=== PATIENT | male | born 1980 | race Two or more races ===

== ENCOUNTER 2025-01-07 21:06 | Inpatient (IN) | payer MEDICARE, MEDICAID ==
[~2025-01-07] VITALS: Ht 190.5 cm; Wt 95.3 kg
[2025-01-07 20:40] VITALS: BP 142/91; PULSE 84; RESP 18; TEMP 97.1; O2SAT 98
[~2025-01-07 21:06] MED LIST: ATEN-187 PO; CHOL100034 PO; DIVA-112 PO; FOLI20CA PO; LAMO-24 PO; LEVE750T4 PO; PANT-31 PO; PHEN100C74 PO; ROSU20TA98 PO; SERT-158 PO
[2025-01-07] MEDS ORDERED: ZOLPIDEM TARTRATE 10 MG TABLET PO PRN (22:00)
[2025-01-07] MEDS ORDERED: haloperidoL 5 MG TABLET PO PRN (22:00)
[2025-01-07 22:05] LABS: GLUCOMETER DEV NAME(LOC) POC.BV; POC SARS-COV2 AG, FIA NEGATIVE (NEGATIVE)
[2025-01-07 23:12] VITALS: BP 130/78; PULSE 83; RESP 18; TEMP 98.2; O2SAT 98
[2025-01-08] MEDS ORDERED: LOPERAMIDE HCL 2 MG CAPSULE PO PRN
[2025-01-08] MEDS ORDERED: BACITRACIN 28 GM OINTMENT TP PRN
[2025-01-08] MEDS ORDERED: OMEPRAZOLE 20 MG CAPSULE PO PRN
[2025-01-08] MEDS ORDERED: ALBUTEROL SULFATE HFA 90 MCG/PUFF 8 GM INHALER IH PRN
[2025-01-08] MEDS ORDERED: CloNIDine HCL 0.1 MG TABLET PO PRN
[2025-01-08] MEDS ORDERED: ONDANSETRON 4 MG TABLET PO PRN
[2025-01-08] MEDS ORDERED: IBUPROFEN 600 MG TABLET PO PRN
[2025-01-08] MEDS ORDERED: MAG HYDROX/ALUMINUM HYD/SIMETH ES 30 ML SUSPENSION UDCUP PO PRN
[2025-01-08] MEDS ORDERED: ACETAMINOPHEN 325 MG TABLET PO PRN
[2025-01-08] MEDS ORDERED: BENZOCAINE/MENTHOL [CEPACOL] LOZENGE PO PRN
[2025-01-08] MEDS ORDERED: PETROLATUM,WHITE 28 GM JELLY TP PRN
[2025-01-08] MEDS: PNEUMOCOCCAL VACCINE POLYVALENT 0.5 ML SYRINGE [PPSV23] IM. ONE (02:30)
[2025-01-08] MEDS: LORazepam 2 MG TABLET PO PRN (04:24)
[2025-01-08 09:39] VITALS: BP 111/72; PULSE 98; RESP 18; TEMP 97.9; O2SAT 98
[2025-01-08 09:43] LABS: BASOPHILS % (AUTO) 0.3 % (0.0-2.0); EOSINOPHILS % (AUTO) 0.7 % (1.0-6.0); HEMATOCRIT 42.3 % (41-53); LYMPHOCYTES # (AUTO) 1.3 K/uL (1.0-4.8); LYMPHOCYTES % (AUTO) 16.9 % (22.0-44.0); MEAN CORPUSCULAR HEMOGLOBIN 30.6 pg (26.0-34.0); MEAN CORPUSCULAR HGB CONC 33.1 G/dL (31.0-37.0); MEAN CORPUSCULAR VOLUME 92 fL (80-100); MONOCYTES # (AUTO) 0.9 K/uL (0.1-1.0); MONOCYTES % (AUTO) 11.1 % (2.0-9.0); NEUTROPHILS # (AUTO) 5.5 K/uL (1.8-7.7); PLATELET COUNT (AUTO) 258 K/uL (150-450); RED BLOOD CELL COUNT(AUTO) 4.58 MIL/uL (4.50-5.90); RED CELL DISTRIBUTION WIDTH 13.8 % (11.5-14.5); WHITE BLOOD COUNT (AUTO) 7.8 K/uL (4.5-11.0)
[2025-01-08 09:51] LABS: HEMOGLOBIN A1C 5.1 % (3.8-5.6)
[2025-01-08 09:59] LABS: ALCOHOL, BLOOD (SERUM) < 3 mg/dL (0-10)
[2025-01-08 10:05] LABS: ALANINE AMINOTRANSFERASE 29 U/L (12-78); ALBUMIN 3.6 g/dL (3.4-5.0); ALKALINE PHOSPHATASE 131 U/L (46-116); ANION GAP 7 mmol/L (8-16); ASPARTATE AMINOTRANSFERASE 32 U/L (15-37); BILIRUBIN,TOTAL 0.2 mg/dL (0.1-1.0); CALCIUM, TOTAL 9.1 mg/dL (8.8-10.5); CARBON DIOXIDE 31 mmol/L (22-29); CHLORIDE 101 mmol/L (98-107); CHOLESTEROL 160 mg/dL (131-200); CREATININE 0.81 mg/dL (0.60-1.30); GLOMERULAR FILTR. RATE CALC > 60 mL/min (>60); GLUCOSE,RANDOM 125 mg/dL (70-110); HDL CHOLESTEROL 54 mg/dL (40-60); LDL CHOL (CALC.) 96 mg/dL (0-130); POTASSIUM 4.3 mmol/L (3.5-5.1); SODIUM SERUM 139 mmol/L (136-145); T4 (THYROXINE) 6.9 mcg/dL (4.7-13.3); THYROID STIMULATING HORMONE 0.78 uIU/mL (0.36-3.74); TOTAL PROTEIN, SERUM 7.9 g/dL (6.4-8.2); TRIGLYCERIDES 51 mg/dL (15-150); UREA NITROGEN, BLOOD 16 mg/dL (7-18)
[2025-01-08] MEDS: ROSUVASTATIN CALCIUM 20 MG TABLET PO SCH (20:14)
[2025-01-08] MEDS: PHENYTOIN SODIUM 100 MG ER CAPSULE PO SCH (20:15)
[2025-01-08] MEDS: MIRTAZAPINE 15 MG TABLET PO SCH (20:15)
[2025-01-08 20:38] VITALS: BP 133/82; PULSE 83; RESP 18; TEMP 97.7; O2SAT 99
[2025-01-09 08:47] VITALS: BP 129/100; PULSE 98; RESP 16; TEMP 98; O2SAT 99
[2025-01-09] MEDS: atenoloL 25 MG TABLET PO SCH (10:13)
[2025-01-09] MEDS: LevETIRAcetam 250 MG TABLET PO SCH (10:14)
[2025-01-09] MEDS: CHOLECALCIFEROL (VIT D3) 1,000 UNITS [25 MCG] TABLET PO SCH (10:14)
[2025-01-09 20:59] VITALS: BP 125/82; PULSE 71; RESP 18; TEMP 97.8; O2SAT 97
[2025-01-10 09:00] VITALS: BP 116/83; PULSE 92; RESP 18; TEMP 97.7; O2SAT 100
[2025-01-10 09:16] LABS: APPEARANCE,URINE TURBID (CLEAR); BILIRUBIN,URINE NEGATIVE (NEGATIVE); COLOR,URINE YELLOW (YELLOW); GLUCOSE, URINE (UA) NEGATIVE (NEGATIVE); KETONES,URINE NEGATIVE (NEGATIVE); LEUKOCYTE ESTERASE ,URINE NEGATIVE (NEGATIVE); NITRATE,URINE NEGATIVE (NEGATIVE); OCCULT BLOOD,URINE TRACE (NEGATIVE); PROTEIN,URINE TRACE mg/dL (NEGATIVE); SPECIFIC GRAVITIY, URINE 1.029 (1.003-1.030); UROBILINOGEN,URINE <=1.0 mg/dL (<=1.0)
[2025-01-10 09:21] LABS: ALCOHOL, URINE DRUG SCREEN NEGATIVE (NEGATIVE); AMPHET/METH SCREEN,URINE NEGATIVE (NEGATIVE); BARBITURATE SCREEN, URINE NEGATIVE (NEGATIVE); BENZODIAZEPINES SCREEN,URINE NEGATIVE (NEGATIVE); CANNABINOID SCREEN,URINE NEGATIVE (NEGATIVE); COCAINE SCREEN,URINE NEGATIVE (NEGATIVE); METHADONE SCREEN, URINE NEGATIVE (NEGATIVE); OPIATE SCREEN,URINE NEGATIVE (NEGATIVE); PHENCYCLIDINE SCREEN,URINE NEGATIVE (NEGATIVE)
[2025-01-10 09:29] LABS: RBC,URINE 0-2 /HPF (0-2); WBC,URINE None Seen /HPF (0-5)
[2025-01-10 09:30] LABS: AMORPHOUS SEDIMENT,UR Moderate /LPF (None Seen); BACTERIA,URINE None Seen /HPF (None Seen)
[2025-01-10 21:36] VITALS: BP 123/62; PULSE 74; RESP 18; TEMP 97.9; O2SAT 96
[2025-01-11 09:18] VITALS: BP 115/70; PULSE 72; RESP 16; TEMP 98.8; O2SAT 100
[2025-01-11 20:38] VITALS: BP 128/94; PULSE 69; RESP 18; TEMP 98.1; O2SAT 99
[2025-01-12] MEDS: PANTOPRAZOLE SODIUM 40 MG DR TABLET PO SCH (10:57)
[2025-01-12 15:11] VITALS: BP 149/97; PULSE 84; RESP 18; TEMP 98.2; O2SAT 100
[2025-01-12 20:25] VITALS: BP 123/75; PULSE 63; RESP 18; TEMP 97.4; O2SAT 100
[2025-01-13 08:05] VITALS: BP 116/60; PULSE 98; RESP 18; TEMP 97.3; O2SAT 99
[2025-01-13 21:59] VITALS: BP 127/73; PULSE 69; RESP 18; TEMP 98.1; O2SAT 97
[2025-01-14 10:38] VITALS: BP 124/83; PULSE 69; RESP 17; TEMP 97.4; O2SAT 99
[2025-01-14 20:48] VITALS: BP 131/85; PULSE 66; RESP 16; TEMP 97.5; O2SAT 99
[2025-01-15 08:22] VITALS: BP 112/68; PULSE 75; RESP 18; TEMP 97.6; O2SAT 99
[2025-01-15 21:27] VITALS: BP 129/70; PULSE 60; RESP 18; TEMP 98.2; O2SAT 99
[2025-01-16 08:00] VITALS: BP 112/69; PULSE 82; RESP 17; TEMP 98.2; O2SAT 98
[2025-01-16 21:36] VITALS: BP 121/87; PULSE 68; RESP 18; TEMP 98.4; O2SAT 98
[2025-01-17 09:08] VITALS: BP 111/74; PULSE 69; RESP 18; TEMP 97.2; O2SAT 100
[2025-01-17] MEDS ORDERED: LEVE250T81 PO (09:31)
[2025-01-17] MEDS ORDERED: PHEN100C74 PO (09:31)
[2025-01-17] MEDS ORDERED: PANT-31 PO (09:31)
[2025-01-17] MEDS ORDERED: ROSU20TA98 PO (09:31)
[2025-01-17] MEDS ORDERED: CHOL25TA4 PO (09:31)
[2025-01-17] MEDS ORDERED: MIRT-89 PO (09:31)
[2025-01-17] MEDS ORDERED: ATEN-73 PO (09:31)
== END 2025-01-17 16:28 | disposition home or self-care (01) | DRG 885 ==
LOC: B2S 22:02
PROVIDERS: ADMIT Psychiatry & Neurology Psychiatry; ATTEND Psychiatry & Neurology Psychiatry
PROC: GZHZZZZ Group Psychotherapy (ICD-10-PCS; principal; 2025-01-08)
PROC: GZ52ZZZ Individual Psychotherapy, Cognitive (ICD-10-PCS; 2025-01-11)
DX: F33.2 Major depressive disorder, recurrent severe without psychotic features (principal); R45.851 Suicidal ideations; Z59.00 Homelessness unspecified; G40.909 Epilepsy, unspecified, not intractable, without status epilepticus; G47.00 Insomnia, unspecified; I10 Essential (primary) hypertension; K21.9 Gastro-esophageal reflux disease without esophagitis; E78.5 Hyperlipidemia, unspecified; Z20.822 Contact with and (suspected) exposure to COVID-19; F41.9 Anxiety disorder, unspecified; Z88.0 Allergy status to penicillin
CPT/HCPCS: 80053; 80061; 80307; 81001; 83036; 84436; 84443; 85025; G0480

== ENCOUNTER 2025-01-18 15:47 | Inpatient (IN) | payer MEDICARE, MEDICAID ==
[~2025-01-18] VITALS: Ht 188 cm; Wt 97.1 kg
[~2025-01-18 15:47] MED LIST changes: -ATEN-187 PO; +ATEN-73 PO; -CHOL100034 PO; +CHOL25TA4 PO; -DIVA-112 PO; -FOLI20CA PO; -LAMO-24 PO; +LEVE250T81 PO; -LEVE750T4 PO; +MIRT-89 PO; -SERT-158 PO
[2025-01-18 17:16] LABS: GLUCOMETER DEV NAME(LOC) POC.BV; POC SARS-COV2 AG, FIA NEGATIVE (NEGATIVE)
[2025-01-18] MEDS: PHENYTOIN SODIUM 100 MG ER CAPSULE PO SCH (18:46)
[2025-01-18 19:18] VITALS: BP 134/86; PULSE 85; RESP 17; TEMP 99
[2025-01-18 20:26] VITALS: BP 125/80; PULSE 77; RESP 18; TEMP 99; O2SAT 96
[2025-01-18] MEDS: ROSUVASTATIN CALCIUM 20 MG TABLET PO SCH (20:44)
[2025-01-18] MEDS: ZOLPIDEM TARTRATE 10 MG TABLET PO PRN (21:33)
[2025-01-19] MEDS ORDERED: NICOTINE 14 MG/24 HOUR PATCH TD PRN (06:30)
[2025-01-19] MEDS ORDERED: ACETAMINOPHEN 325 MG TABLET PO PRN (06:30)
[2025-01-19] MEDS ORDERED: PETROLATUM,WHITE 28 GM JELLY TP PRN (06:30)
[2025-01-19] MEDS ORDERED: ALBUTEROL SULFATE HFA 90 MCG/PUFF 8 GM INHALER IH PRN (06:30)
[2025-01-19 08:42] VITALS: BP 119/77; PULSE 79; RESP 18; TEMP 97.8; O2SAT 97
[2025-01-19] MEDS: CHOLECALCIFEROL (VIT D3) 1,000 UNITS [25 MCG] TABLET PO SCH (09:40)
[2025-01-19] MEDS: PANTOPRAZOLE SODIUM 40 MG DR TABLET PO SCH (09:40)
[2025-01-19 09:44] LABS: PLATELET COUNT (AUTO) 318 K/uL (150-450); RED BLOOD CELL COUNT(AUTO) 4.68 MIL/uL (4.50-5.90); RED CELL DISTRIBUTION WIDTH 14.1 % (11.5-14.5); WHITE BLOOD COUNT (AUTO) 11.3 K/uL (4.5-11.0)
[2025-01-19 10:17] LABS: APPEARANCE,URINE TURBID (CLEAR); GLUCOSE, URINE (UA) 70-100 mg/dL (NEGATIVE); LEUKOCYTE ESTERASE ,URINE NEGATIVE (NEGATIVE); NITRATE,URINE NEGATIVE (NEGATIVE); OCCULT BLOOD,URINE NEGATIVE (NEGATIVE); PH,URINE DRUG SCREEN 6.0 (5.0-8.0); SPECIFIC GRAVITIY, URINE 1.029 (1.003-1.030)
[2025-01-19 10:21] LABS: ASPARTATE AMINOTRANSFERASE 28 U/L (15-37); CALCIUM, TOTAL 8.9 mg/dL (8.8-10.5); CHOL/HDL RATIO 2.3 (4.2-7.3); CREATININE 0.81 mg/dL (0.60-1.30); GLOMERULAR FILTR. RATE CALC > 60 mL/min (>60); GLUCOSE,RANDOM 82 mg/dL (70-110); LDL CHOL (CALC.) 59 mg/dL (0-130); SODIUM SERUM 141 mmol/L (136-145); TOTAL PROTEIN, SERUM 8.0 g/dL (6.4-8.2); UREA NITROGEN, BLOOD 20 mg/dL (7-18)
[2025-01-19 10:25] LABS: ALCOHOL, URINE DRUG SCREEN NEGATIVE (NEGATIVE); AMPHET/METH SCREEN,URINE NEGATIVE (NEGATIVE); BARBITURATE SCREEN, URINE NEGATIVE (NEGATIVE); CANNABINOID SCREEN,URINE NEGATIVE (NEGATIVE); COCAINE SCREEN,URINE NEGATIVE (NEGATIVE); METHADONE SCREEN, URINE NEGATIVE (NEGATIVE)
[2025-01-19 10:45] LABS: AMORPHOUS SEDIMENT,UR Many /LPF (None Seen)
[2025-01-19 20:51] VITALS: BP 104/56; PULSE 68; RESP 17; TEMP 97; O2SAT 99
[2025-01-19] MEDS: MIRTAZAPINE 15 MG TABLET PO SCH (20:55)
[2025-01-20 08:31] VITALS: BP 125/90; PULSE 78; RESP 18; TEMP 97.5; O2SAT 96
[2025-01-20 09:41] LABS: CHOL/HDL RATIO 2.5 (4.2-7.3); LDL CHOL (CALC.) 56.0 mg/dL (0-130)
[2025-01-20 20:20] VITALS: BP 135/80; PULSE 67; RESP 18; TEMP 98.2; O2SAT 99
[2025-01-21 08:12] VITALS: BP 130/97; PULSE 115; RESP 19; TEMP 97.9; O2SAT 99
[2025-01-21 11:18] VITALS: BP 117/75; PULSE 62; RESP 16; O2SAT 98
[2025-01-21 20:00] VITALS: BP 124/88; PULSE 68; RESP 17; TEMP 98.1; O2SAT 98
[2025-01-22 08:34] VITALS: BP 133/90; PULSE 66; RESP 18; TEMP 97.9; O2SAT 98
[2025-01-22 20:29] VITALS: BP 124/72; PULSE 52; RESP 17; TEMP 97.3; O2SAT 100
[2025-01-23 09:02] VITALS: BP 133/98; PULSE 89; RESP 18; TEMP 97.5; O2SAT 96
[2025-01-23 11:07] VITALS: BP 123/80; PULSE 78; RESP 16; O2SAT 98
[2025-01-23 20:24] VITALS: BP 114/76; PULSE 70; RESP 18; TEMP 97.6; O2SAT 100
[2025-01-24] MEDS: IBUPROFEN 400 MG TABLET PO PRN (08:38)
[2025-01-24 08:39] VITALS: RESP 18
[2025-01-24 08:41] VITALS: BP 127/91; PULSE 82; RESP 17; TEMP 97.6; O2SAT 98
[2025-01-24 09:39] VITALS: RESP 18
[2025-01-24 20:30] VITALS: BP 118/78; PULSE 67; RESP 18; TEMP 97.7; O2SAT 97
[2025-01-25 08:26] VITALS: RESP 18
[2025-01-25 08:44] VITALS: BP 125/90; PULSE 67; RESP 18; TEMP 97.8; O2SAT 95
[2025-01-25 09:26] VITALS: RESP 18
[2025-01-25 20:11] VITALS: BP 118/64; PULSE 80; RESP 18; TEMP 97.3; O2SAT 95
[2025-01-25 21:11] VITALS: RESP 18
[2025-01-26 06:42] VITALS: BP 119/90; PULSE 79; RESP 16; O2SAT 98
[2025-01-26 07:42] VITALS: RESP 16
[2025-01-26 08:37] VITALS: BP 126/88; PULSE 74; RESP 18; TEMP 98.2; O2SAT 97
[2025-01-26] MEDS ORDERED: ZOLPIDEM TARTRATE 10 MG TABLET PO PRN (13:45)
[2025-01-26 17:44] VITALS: BP 130/88; PULSE 61; RESP 18
[2025-01-26 18:45] VITALS: RESP 18
[2025-01-26 20:27] VITALS: BP 123/80; PULSE 65; RESP 18; TEMP 98; O2SAT 97
[2025-01-26] MEDS: ZOLPIDEM TARTRATE 5 MG TABLET PO PRN (20:57)
[2025-01-27 07:53] VITALS: RESP 17
[2025-01-27 08:37] VITALS: BP 135/88; PULSE 85; RESP 18; TEMP 97.9; O2SAT 98
[2025-01-27 08:53] VITALS: RESP 16
[2025-01-27 16:02] VITALS: RESP 17
[2025-01-27 17:02] VITALS: RESP 16
[2025-01-27 20:08] VITALS: BP 114/72; PULSE 75; RESP 19; TEMP 98.1; O2SAT 99
[2025-01-27] MEDS: MIRTAZAPINE 15 MG TABLET PO SCH (20:22)
[2025-01-28 06:24] VITALS: RESP 18
[2025-01-28 07:25] VITALS: RESP 18
[2025-01-28 08:33] VITALS: BP 131/83; PULSE 77; RESP 17; TEMP 97.5; O2SAT 98
[2025-01-28 20:23] VITALS: BP 115/79; PULSE 70; RESP 16; TEMP 98.1; O2SAT 98
[2025-01-29 06:17] VITALS: BP 128/93; PULSE 67; RESP 18; TEMP 97.5; O2SAT 99
[2025-01-29 07:00] VITALS: RESP 17
[2025-01-29 08:43] VITALS: BP 129/88; PULSE 67; RESP 18; TEMP 98.1; O2SAT 99
[2025-01-29 16:36] VITALS: BP 119/82; PULSE 73; RESP 18
[2025-01-29 17:44] VITALS: RESP 18
[2025-01-29 21:52] VITALS: BP 123/87; PULSE 73; RESP 19; TEMP 96.8; O2SAT 99
[2025-01-30 06:03] VITALS: BP 136/92; PULSE 73; RESP 18; O2SAT 96
[2025-01-30 08:27] VITALS: BP 124/88; PULSE 67; RESP 16; TEMP 98.5; O2SAT 98
[2025-01-30] MEDS: PANTOPRAZOLE SODIUM 40 MG DR TABLET PO SCH (16:01)
[2025-01-30] MEDS: DIVALPROEX SODIUM 500 MG ER TABLET PO SCH (16:34)
[2025-01-30 20:13] VITALS: BP 106/69; PULSE 60; RESP 19; TEMP 97.9; O2SAT 99
[2025-01-30] MEDS: FOLIC ACID 1 MG TABLET PO SCH (20:36)
[2025-01-30] MEDS: PHENYTOIN SODIUM 100 MG ER CAPSULE PO SCH (20:37)
[2025-01-31 06:25] VITALS: BP 130/85; PULSE 70; RESP 18; O2SAT 97
[2025-01-31 07:26] VITALS: RESP 18
[2025-01-31 08:30] VITALS: BP 122/77; PULSE 77; RESP 18; TEMP 97.8; O2SAT 98
[2025-01-31 20:31] VITALS: RESP 17
[2025-01-31 20:36] VITALS: BP 116/78; PULSE 69; RESP 18; TEMP 97.7; O2SAT 100
[2025-01-31 21:31] VITALS: RESP 17
[2025-02-01 08:42] VITALS: RESP 18
[2025-02-01 08:51] VITALS: BP 106/59; PULSE 75; RESP 18; TEMP 97.7; O2SAT 100
[2025-02-01 09:42] VITALS: RESP 18
[2025-02-01 19:16] VITALS: BP 118/76; PULSE 63; RESP 18
[2025-02-01 20:32] VITALS: BP 115/79; PULSE 71; RESP 17; TEMP 98.1; O2SAT 98
[2025-02-01 21:04] VITALS: RESP 18
[2025-02-02 05:52] VITALS: BP 118/81; PULSE 70; RESP 18; TEMP 97.7; O2SAT 98
[2025-02-02 08:36] VITALS: BP 115/71; PULSE 69; RESP 17; TEMP 97.9; O2SAT 97
[2025-02-02 20:02] VITALS: BP 119/72; PULSE 71; RESP 18; TEMP 97.8; O2SAT 100
[2025-02-03 06:51] VITALS: BP 129/76; PULSE 66; RESP 18; TEMP 97.7; O2SAT 98
[2025-02-03 08:11] VITALS: BP 117/72; PULSE 80; RESP 17; TEMP 97.5; O2SAT 99
[2025-02-03] MEDS: LIDOCAINE 5% TRANSDERMAL PATCH TD SCH (09:15)
[2025-02-03] MEDS: ONDANSETRON 4 MG TABLET PO PRN (10:05)
[2025-02-03 16:13] VITALS: BP 121/77; PULSE 58; RESP 18; TEMP 97.7; O2SAT 100
[2025-02-03 20:01] VITALS: BP 121/77; PULSE 68; RESP 17; TEMP 98.1; O2SAT 100
[2025-02-03] MEDS: -LIDODERM PATCH NOTE- MISC SCH (21:00)
[2025-02-04 06:16] VITALS: BP 108/77; PULSE 65; RESP 18; O2SAT 99
[2025-02-04 08:09] VITALS: BP 112/61; PULSE 74; RESP 18; TEMP 98.2; O2SAT 99
[2025-02-04 12:35] VITALS: BP 116/64; PULSE 70; RESP 17; O2SAT 98
[2025-02-04 13:35] VITALS: RESP 16
[2025-02-04] MEDS: MAGNESIUM HYDROXIDE SUSPENSION 30 ML UDCUP PO PRN (17:21)
[2025-02-04 18:42] VITALS: BP 130/82; PULSE 64; RESP 17; O2SAT 98
[2025-02-04 20:14] VITALS: BP 106/69; PULSE 61; RESP 16; TEMP 97.7; O2SAT 98
[2025-02-05 08:10] VITALS: BP 110/70; PULSE 72; RESP 18; TEMP 98.4; O2SAT 98
[2025-02-05 12:20] VITALS: BP 120/67; PULSE 64; RESP 17; O2SAT 99
[2025-02-05 13:20] VITALS: RESP 16
[2025-02-05 20:11] VITALS: BP 111/75; PULSE 61; RESP 15; TEMP 98.5; O2SAT 100
[2025-02-05 20:18] VITALS: RESP 18
[2025-02-05 21:18] VITALS: RESP 18
[2025-02-06 08:06] VITALS: BP 118/71; PULSE 70; RESP 18; TEMP 98.8; O2SAT 98
[2025-02-06] MEDS: MAG HYDROX/ALUMINUM HYD/SIMETH ES 30 ML SUSPENSION UDCUP PO PRN (20:07)
[2025-02-06 20:15] VITALS: BP 99/66; PULSE 64; RESP 16; TEMP 97.3; O2SAT 97
[2025-02-07 08:03] VITALS: BP 108/73; PULSE 69; RESP 18; TEMP 97.8; O2SAT 99
[2025-02-07 20:18] VITALS: BP 113/73; PULSE 67; RESP 18; TEMP 98.1; O2SAT 99
[2025-02-08 06:13] VITALS: BP 120/68; PULSE 64; RESP 16; TEMP 99; O2SAT 100
[2025-02-08 08:21] VITALS: BP 117/77; PULSE 78; RESP 18; TEMP 98.2; O2SAT 98
[2025-02-08 14:31] VITALS: RESP 18
[2025-02-08 15:31] VITALS: RESP 18
[2025-02-08 20:20] VITALS: BP 120/82; PULSE 125; RESP 20; TEMP 97.9; O2SAT 96
[2025-02-08 20:37] VITALS: BP 122/81; PULSE 67; RESP 17; TEMP 98.1; O2SAT 99
[2025-02-09] VITALS (8 sets, daily range): BP systolic 112–139; BP diastolic 62–83; PULSE 67–76; RESP 18; TEMP 97.6–98.2; O2SAT 96–98
[2025-02-09] MEDS: HYDROCODONE/ACETAMINOPHEN 5-325 MG TABLET PO PRN (18:04)
[2025-02-10] VITALS (7 sets, daily range): BP systolic 117–137; BP diastolic 72–79; PULSE 64–77; RESP 16–18; TEMP 97–97.9; O2SAT 98–100
[2025-02-11] VITALS (7 sets, daily range): BP systolic 114–132; BP diastolic 74–84; PULSE 65–74; RESP 16–18; TEMP 97.7–98.1; O2SAT 97–100
[2025-02-12] VITALS (7 sets, daily range): BP systolic 122–133; BP diastolic 74–82; PULSE 66–72; RESP 16–18; TEMP 98.1–99.1; O2SAT 99–100
[2025-02-12] MEDS: DOCUSATE SODIUM 100 MG CAPSULE PO PRN (09:22)
[2025-02-13] VITALS (8 sets, daily range): BP systolic 110–133; BP diastolic 75–86; PULSE 6–70; RESP 17–18; TEMP 97.6–98.4; O2SAT 98–99
[2025-02-14 00:05] VITALS: BP 131/81; PULSE 69; RESP 18; O2SAT 99
[2025-02-14 06:00] VITALS: BP 127/78; PULSE 66; RESP 18; O2SAT 98
[2025-02-14 08:30] VITALS: BP 134/89; PULSE 69; RESP 18; TEMP 98.2; O2SAT 100
[2025-02-14 12:20] VITALS: RESP 17
[2025-02-14 20:03] VITALS: BP 131/68; PULSE 73; RESP 18; TEMP 97.9; O2SAT 99
[2025-02-15] VITALS (10 sets, daily range): BP systolic 119–126; BP diastolic 75–80; PULSE 70–81; RESP 17–18; TEMP 97.4–98.2; O2SAT 99
[2025-02-16] VITALS (7 sets, daily range): BP systolic 111–129; BP diastolic 71–78; PULSE 72–81; RESP 18–19; TEMP 97.8–98.3; O2SAT 98–100
[2025-02-17] VITALS (7 sets, daily range): BP systolic 112–188; BP diastolic 76–81; PULSE 61–82; RESP 17–18; TEMP 97.2–98.1; O2SAT 99
[2025-02-17 08:49] LABS: PLATELET COUNT (AUTO) 261 K/uL (150-450); RED BLOOD CELL COUNT(AUTO) 4.41 MIL/uL (4.50-5.90); RED CELL DISTRIBUTION WIDTH 14.1 % (11.5-14.5); WHITE BLOOD COUNT (AUTO) 8.6 K/uL (4.5-11.0)
[2025-02-17 09:03] LABS: ASPARTATE AMINOTRANSFERASE 18 U/L (15-37); CALCIUM, TOTAL 8.5 mg/dL (8.8-10.5); CREATININE 0.73 mg/dL (0.60-1.30); GLOMERULAR FILTR. RATE CALC > 60 mL/min (>60); GLUCOSE,RANDOM 84 mg/dL (70-110); PHOSPHORUS 3.0 mg/dL (2.5-4.9); SODIUM SERUM 140 mmol/L (136-145); TOTAL PROTEIN, SERUM 7.0 g/dL (6.4-8.2); UREA NITROGEN, BLOOD 18 mg/dL (7-18)
[2025-02-18] VITALS (7 sets, daily range): BP systolic 107–121; BP diastolic 66–76; PULSE 61–76; RESP 16–18; TEMP 98–99; O2SAT 100
[2025-02-19] VITALS (8 sets, daily range): BP systolic 109–125; BP diastolic 68–80; PULSE 65–77; RESP 16–18; TEMP 98.2–99.5; O2SAT 98–100
[2025-02-19] MEDS: LACTULOSE 20 GM/30 ML SOLUTION UDCUP PO SCH (08:08)
[2025-02-19] MEDS: TUBERCULIN, PURIFIED PROTEIN DERIVATIVE 5 TU/0.1 ML SYRINGE ID ONE (08:16)
[2025-02-19] MEDS ORDERED: LACTULOSE 20 GM/30 ML SOLUTION UDCUP PO SCH (09:00)
[2025-02-20] VITALS (7 sets, daily range): BP systolic 106–117; BP diastolic 66–80; PULSE 68–77; RESP 16–18; TEMP 97.9–98.3; O2SAT 98–100
[2025-02-21] VITALS (7 sets, daily range): BP systolic 114–133; BP diastolic 64–89; PULSE 69–78; RESP 17–18; TEMP 98.1–98.5; O2SAT 98
[2025-02-21] MEDS: LOPERAMIDE HCL 2 MG CAPSULE PO PRN (19:41)
[2025-02-22] VITALS (9 sets, daily range): BP systolic 118–136; BP diastolic 65–89; PULSE 69–71; RESP 17–18; TEMP 98–99.7; O2SAT 98
[2025-02-23 03:15] VITALS: BP 125/83; PULSE 89; RESP 18; TEMP 97.9; O2SAT 100
[2025-02-23 09:03] VITALS: BP 125/67; PULSE 70; RESP 18; TEMP 97.5; O2SAT 100
[2025-02-23 20:36] VITALS: BP 116/78; PULSE 71; RESP 17; TEMP 98; O2SAT 97
[2025-02-23 21:46] VITALS: BP 121/85; PULSE 78; RESP 18; TEMP 97.6; O2SAT 97
[2025-02-24] VITALS (8 sets, daily range): BP systolic 115–124; BP diastolic 73–79; PULSE 72–85; RESP 16–18; TEMP 97.8–98.9; O2SAT 98–100
[2025-02-25] VITALS (10 sets, daily range): BP systolic 112–133; BP diastolic 70–81; PULSE 69–83; RESP 16–18; TEMP 97.4–98.2; O2SAT 97–99
[2025-02-25] MEDS: HYDROCODONE/ACETAMINOPHEN 10-325 MG TABLET PO PRN (12:32)
[2025-02-26] VITALS (10 sets, daily range): BP systolic 117–128; BP diastolic 68–78; PULSE 63–87; RESP 16–18; TEMP 98.4–98.5; O2SAT 98
[2025-02-27] VITALS (9 sets, daily range): BP systolic 110–134; BP diastolic 73–79; PULSE 67–75; RESP 17–18; TEMP 97.9–98.1; O2SAT 98–100
[2025-02-27 08:33] LABS: VALPROIC ACID 48.0 mcg/mL (50-100)
[2025-02-28] VITALS (10 sets, daily range): BP systolic 96–141; BP diastolic 61–92; PULSE 68–74; RESP 17–18; TEMP 97.9–98.7; O2SAT 99–100
[2025-03-01] VITALS (8 sets, daily range): BP systolic 114–125; BP diastolic 64–80; PULSE 66–74; RESP 17–19; TEMP 97.8–98; O2SAT 98–100
[2025-03-02] VITALS (7 sets, daily range): BP systolic 107–119; BP diastolic 62–81; PULSE 64–70; RESP 17–18; TEMP 98.4–98.6; O2SAT 98–100
[2025-03-03 06:00] VITALS: BP 108/62; PULSE 66; RESP 18
[2025-03-03 08:31] VITALS: BP 109/81; PULSE 69; RESP 17; TEMP 97.8; O2SAT 99
[2025-03-03 12:26] VITALS: RESP 17
[2025-03-03 13:26] VITALS: RESP 17
[2025-03-03 20:10] VITALS: BP 106/70; PULSE 71; RESP 18; TEMP 97.8; O2SAT 100
[2025-03-03 22:57] VITALS: RESP 19
[2025-03-04] VITALS (7 sets, daily range): BP systolic 105–114; BP diastolic 69–74; PULSE 65–79; RESP 16–18; TEMP 97.4–98.2; O2SAT 98–99
[2025-03-05 05:06] VITALS: BP 118/78; PULSE 75; RESP 18; TEMP 98; O2SAT 97
[2025-03-05 08:38] VITALS: BP 105/62; PULSE 64; RESP 18; TEMP 98.3; O2SAT 100
[2025-03-05 12:23] VITALS: BP 108/71; PULSE 70; RESP 17; O2SAT 99
[2025-03-05 13:23] VITALS: RESP 16
[2025-03-05 18:31] VITALS: RESP 17
[2025-03-05 20:05] VITALS: BP 123/74; PULSE 79; RESP 18; TEMP 97.9; O2SAT 97
[2025-03-06] VITALS (9 sets, daily range): BP systolic 117–120; BP diastolic 77–79; PULSE 65–71; RESP 17–18; TEMP 97.5–97.9; O2SAT 97–100
[2025-03-06] MEDS: GuaiFENesin/D-METHORPHAN [SUGAR-FREE] 200-20MG/10 ML SYRUP UDCUP PO PRN (08:27)
[2025-03-07 05:13] VITALS: BP 109/69; PULSE 77; RESP 18; TEMP 98.8; O2SAT 96
[2025-03-07] MEDS: BENZOCAINE/MENTHOL [CEPACOL] LOZENGE PO PRN (05:17)
[2025-03-07 08:44] VITALS: BP 112/84; PULSE 75; RESP 18; TEMP 99; O2SAT 96
[2025-03-07 12:25] VITALS: BP 113/77; PULSE 77; RESP 18; TEMP 97.8; O2SAT 98
[2025-03-07 13:33] VITALS: RESP 16
[2025-03-07 18:52] VITALS: BP 124/77; PULSE 82; RESP 18; TEMP 97.9; O2SAT 99
[2025-03-07 20:20] VITALS: BP 126/74; PULSE 82; RESP 18; TEMP 97.4; O2SAT 99
[2025-03-08] VITALS (8 sets, daily range): BP systolic 116–127; BP diastolic 70–79; PULSE 77–82; RESP 17–18; TEMP 97.4–98.2; O2SAT 99
[2025-03-09 02:45] VITALS: BP 124/72; PULSE 80; RESP 18; O2SAT 97
[2025-03-09 08:18] VITALS: BP 102/65; PULSE 80; RESP 17; TEMP 98.6; O2SAT 99
[2025-03-09 09:07] VITALS: BP 112/66; PULSE 82; RESP 17; TEMP 98.5; O2SAT 99
[2025-03-09 10:07] VITALS: BP 118/75; PULSE 85; RESP 17; TEMP 98.6; O2SAT 99
[2025-03-09] MEDS ORDERED: DIVA-153 PO (21:53)
[2025-03-09] MEDS ORDERED: PANT-31 PO (21:53)
[2025-03-09] MEDS ORDERED: FOLI-130 PO (21:53)
[2025-03-09] MEDS ORDERED: LACT10SO10 PO (21:53)
[2025-03-09] MEDS ORDERED: LEVE-71 PO (21:53)
[2025-03-09] MEDS ORDERED: LAMO-24 PO (21:53)
== END 2025-03-09 13:47 | disposition home or self-care (01) | DRG 885 ==
LOC: UNDOADMIN 17:06 → B2X 17:06
PROVIDERS: ADMIT Psychiatry & Neurology Psychiatry; ATTEND Psychiatry & Neurology Psychiatry
PROC: GZHZZZZ Group Psychotherapy (ICD-10-PCS; principal; 2025-01-19)
PROC: GZ52ZZZ Individual Psychotherapy, Cognitive (ICD-10-PCS; 2025-01-25)
DX: F33.2 Major depressive disorder, recurrent severe without psychotic features (principal); R45.851 Suicidal ideations; Z59.00 Homelessness unspecified; I10 Essential (primary) hypertension; K21.9 Gastro-esophageal reflux disease without esophagitis; E78.5 Hyperlipidemia, unspecified; G40.909 Epilepsy, unspecified, not intractable, without status epilepticus; F41.9 Anxiety disorder, unspecified; M51.369 Other intervertebral disc degeneration, lumbar region without mention of lumbar back pain or lower extremity pain; G47.00 Insomnia, unspecified; Z20.822 Contact with and (suspected) exposure to COVID-19; G89.29 Other chronic pain; Z88.0 Allergy status to penicillin; Z79.899 Other long term (current) drug therapy
CPT/HCPCS: 80053; 80061; 80164; 80185; 80307; 81001; 83036; 83735; 84100; 84436; 84439; 84443; 85025; 87081; Q0162

== ENCOUNTER 2025-02-03 00:35 | Emergency (ER) | payer MEDICARE, MEDICAID ==
[~2025-02-03] VITALS: Ht 172.7 cm; Wt 71.8 kg
[2025-02-03 01:12] VITALS: BP 117/77; PULSE 64; RESP 16; TEMP 97.5; O2SAT 100
[2025-02-03] MEDS: KETOROLAC TROMETHAMINE 30 MG/ML VIAL IM ONE (02:12)
[2025-02-03] MEDS: LIDOCAINE 5% TRANSDERMAL PATCH TD ONE (02:13)
[2025-02-03 02:28] LABS: APPEARANCE,URINE CLEAR (CLEAR); GLUCOSE, URINE (UA) NEGATIVE (NEGATIVE); LEUKOCYTE ESTERASE ,URINE NEGATIVE (NEGATIVE); NITRATE,URINE NEGATIVE (NEGATIVE); OCCULT BLOOD,URINE NEGATIVE (NEGATIVE); SPECIFIC GRAVITIY, URINE 1.008 (1.003-1.030)
[2025-02-03 02:33] LABS: PLATELET COUNT (AUTO) 221 K/uL (150-450); RED BLOOD CELL COUNT(AUTO) 4.25 MIL/uL (4.50-5.90); RED CELL DISTRIBUTION WIDTH 14.5 % (11.5-14.5); WHITE BLOOD COUNT (AUTO) 8.3 K/uL (4.5-11.0)
[2025-02-03 02:38] LABS: CALCIUM, TOTAL 9.1 mg/dL (8.8-10.5); CREATININE 0.77 mg/dL (0.60-1.30); GLOMERULAR FILTR. RATE CALC > 60 mL/min (>60); GLUCOSE,RANDOM 94 mg/dL (70-110); SODIUM SERUM 143 mmol/L (136-145); UREA NITROGEN, BLOOD 11 mg/dL (7-18)
== END 2025-02-03 04:09 | disposition admitted as inpatient to this hospital (09) ==
LOC: EMS 00:36
DX: S32.040A Wedge compression fracture of fourth lumbar vertebra, initial encounter for closed fracture (principal); I10 Essential (primary) hypertension; Z88.0 Allergy status to penicillin; Z79.899 Other long term (current) drug therapy; X58.XXXA Exposure to other specified factors, initial encounter; Y93.89 Activity, other specified; Y92.89 Other specified places as the place of occurrence of the external cause; Y99.8 Other external cause status
CPT/HCPCS: 99285; 80048; 81003; 85025; 36415; 72100; 96372; J1885